=== PATIENT | female | born 1985 | race Caucasian/White ===

== ENCOUNTER 2025-01-24 22:10 | Emergency (ER) | payer OTHER, SELFPAY ==
--- NOTE | ~2025-01-24 | US_ITS ---
CLINICAL HISTORY: heavy vaginal bleeding US pelvis transabdominal and transvaginal, with Doppler Comparison: None available Findings: Transvaginal and transabdominal scanning performed. Anteverted uterus is 8.1 cm length. Portions of the uterus are obscured by side of the artifacts. Endometrium measures 1.1 cm superiorly by transabdominal imaging and measures 6 mm thickness by transvaginal imaging. Areas of nonuniformity are noted. Dorsal low echogenicity measures 8 mm in the uterus likely due to small fibroid. Small cystic adjacent to the cervix likely due to nabothian cysts measuring 1 cm (image 23). Small follicles noted in both ovaries Right ovary measures 2.9 x 2.5 x 1.6 cm. Left ovary measures 3.2 x 2.1 x 1.9 cm. No significant free fluid in the imaged pelvis. Doppler: Doppler arterial waveform of the right ovary demonstrates peak systolic velocity of 7 cm/sec and resistive index of 0.5. Doppler arterial waveform of the left ovary demonstrates peak systolic velocity of 4 cm/sec and resistive index of 0.5, accounting for aliasing artifacts. IMPRESSION: 1. Nonuniformity of the imaged endometrium. Please consider attention on follow-up in 6 weeks or 10 weeks to ensure normalization. 2. No ultrasound findings of ovarian torsion. This document has been electronically signed by: Frank Ruby MD on 01/25/2025 01:05:57
[2025-01-24 22:33] VITALS: BP 141/81; PULSE 75; RESP 18; TEMP 36.6; O2SAT 98; BMI 36.7
[2025-01-24 23:05] LABS: MANUAL DIFF FLAG NO
[2025-01-24 23:06] LABS: Basophils Absolute Auto 0.1 X10*3/uL (0.0-0.2); Basophils Percent Auto 0.6 % (0-2); Eosinophils Absolute Auto 0.2 X10*3/uL (0.0-0.4); Eosinophils Percent Auto 2.7 % (0-4); Hemoglobin 13.2 g/dl (12.0-16.0); Imm Gran Abs Auto 0.02 X10*3/uL (0.00-0.03); Imm Gran Pct Auto 0.2 % (0.0-0.4); Lymphocytes Absolute Auto 3.2 X10*3/uL (1.2-4.9); Lymphocytes Percent Auto 35.3 % (20-40); Mean Corpuscular HGB Conc 34.7 g/dl (31.0-35.0); Mean Corpuscular Hemoglobin 34.3 pg (27.0-33.0); Mean Corpuscular Volume 98.7 fL (80.0-98.0); Mean Platelet Volume 9.4 fL (9.4-12.3); Monocytes Absolute Auto 0.6 X10*3/uL (0.1-1.2); Neutrophils Absolute Auto 4.9 x10*3/uL (2.0-8.3); Neutrophils Percent Auto 54.2 % (45-73); Platelet Count 304 X10*3/uL (160-400); Red Blood Count 3.85 X10*6/uL (4.20-5.50); Red Cell Distribution Width 12.3 % (11.0-16.0)
[2025-01-24 23:07] LABS: Appearance Urine Cloudy; Color Urine RED; Glucose Urine UA Negative (Negative); Leukocyte Esterase Urine Small (1+) (Negative); Nitrite Urine Positive (Negative); Specific Gravity - Urine 1.025 (1.005-1.025); UMIC TRIGGER UACC YES; Urine Blood Large (3+) (Negative); Urine Ketones Trace mg/dL (Negative); Urine Protein 100 (2+) mg/dL (Neg-Trace)
[2025-01-24 23:16] LABS: Bacteria Urine 4+ (None Seen); Hyaline Casts Urine 0-2 /LPF (0-2); RBC Urine >20 /HPF (0-2); UACC Culture Trigger YES; WBC Urine >50 /HPF (0-5)
[2025-01-24 23:27] LABS: Alanine Aminotransferase 13 U/L (0-31); Albumin Level 4.4 g/dL (3.5-5.0); Alkaline Phosphatase 80 U/L (39-117); Anion Gap 13 (12-20); Aspartate Amino Transferase 21 U/L (5-31); Bilirubin Direct 0.2 mg/dL (0.0-0.5); Bilirubin Total 0.4 mg/dL (0.0-1.0); Blood Urea Nitrogen 13 mg/dL (9-16); Calcium 9.2 mg/dL (8.4-10.2); Carbon Dioxide 24 mmol/L (22-29); Chloride 107 mmol/L (96-108); Creatinine Clr Calc Pharmacy 93.8; Estimated Glomerular Filt Rate > 60; Glucose Random 106 mg/dL (60-115); Lipase 30 U/L (8-78); Potassium 3.8 mmol/L (3.3-5.1); Sodium 140 mmol/L (135-145); Total Protein 7.7 g/dL (6.5-8.0)
[2025-01-24 23:28] LABS: HCG Quantitative < 2 mIU/mL
--- NOTE | 2025-01-24 23:40 | ED_ITS ---
HPI - General Adult General Chief complaint: Vaginal Bleeding Stated complaint: lost a blood clot this morning/not menstruating Time Seen by Provider: 01/24/25 23:32 Source: patient Mode of arrival: ambulatory Limitations: no limitations History of Present Illness ED Provider: Dr. Olga Valdez HPI narrative: Patient comes to the emergency room complaining of heavy vaginal bleeding starting today a proximally 12 hours ago. Patient states that it has low down quite a bit throughout the day. Patient states that her last menstrual period was a proximally 2 weeks ago. Also, patient complaining of mild suprapubic discomfort. Patient denies fever chills. Related Data Previous Rx's ?Medication ?Instructions ?Recorded ondansetron HCl 4 mg tablet 4 mg PO Q6H PRN nausea and 01/25/25 vomiting #10 tabs tranexamic acid 650 mg tablet 650 mg PO Q8H 5 days #15 tabs 01/25/25 Allergies Allergy/AdvReac Type Severity Reaction Status Date / Time No Known Allergies Allergy Verified 01/24/25 22:36 Review of Systems 2 Review of Systems: Constitutional : No Weight loss, No Fever, No Chills, No Night Sweats, No Fatigue, No Malaise ENT/Mouth : No Hearing loss, No Ear Pain, No Nasal Congestion, No Sinus Pain, No Hoarseness, No sore throat, No Rhinorrhea, No Swallowing Difficulty Eyes: No Eye Pain, No Swelling, No Redness, No Foreign Body, No Discharge, No Vision Changes Cardiovascular : No Chest Pain, No SOB, No Dyspnea on Exertion, No Orthopnea, No Edema, No Palpitations Respiratory : No Cough, No Sputum, No Wheezing, No Smoke Exposure, No Dyspnea Gastrointestinal : No Nausea, No Vomiting, No Diarrhea, No Constipation, no significant abdominal pain, suprapubic discomfort. Genitourinary : Complaining of heavy vaginal bleeding, last menstrual period 2 weeks ago, No Dysuria, No Urinary Frequency, No Hematuria, No Urinary Incontinence, No Urgency, No Flank Pain, No Urinary Flow Changes, No Hesitancy Musculoskeletal : No joint pain, No Myalgias, No Joint Swelling Skin : No Skin Lesions, No rash Neuro : No Weakness, No Numbness, No Paresthesias, No Loss of Consciousness, No Dizziness, No Headache Psych : No Anxiety/Panic, No Depression, No SI/HI/AH/VH, No Social Issues, Heme/Lymph: No Bruising, No Bleeding,No Lymphadenopathy Endocrine : No Polyuria, No Polydipsia, No Temperature Intolerance [facility] Social History Social History Smoked in Last 30 Days: Yes Use of substances other than those prescribed or required for medical reasons: Yes Substance Use Type: Marijuana Advance Directives: No Advance Directives Information Provided: Yes Do you have a plan to hurt others: No Plan Patient : No Physical Exam ED Vital Signs: Vital Signs - 24 hr 01/24/25 22:33 01/24/25 23:46 Temperature 97.9 F 97.8 F Pulse Rate 75 67 Respiratory Rate 18 16 Blood Pressure 141/81 H 126/74 Pulse Oximetry 98 99 Oxygen Delivery Method Room Air Room Air BMI result Body Mass Index 36.7 Const Other: Appearance: Alert. Oriented X3. No acute distress. Eyes: Pupils equal, round and reactive to light. ENT: Pharynx normal. Neck: Normal inspection. Neck supple. No lymph nodes noted. No crepitus CVS: Normal heart rate and rhythm. Pulses normal. Normal S1 and S2 Respiratory: No respiratory distress. Breath sounds normal. No Wheezing. No rales Abdomen: Soft and nontender. No rigidity. No distention. : Small to moderate amount of vaginal bleeding Skin: Skin warm and dry. Normal skin color. Normal skin turgor. Extremities: No lower extremity edema. No Lacerations. No Rash Neuro: Oriented X 3. No motor deficit. No sensory deficit. Moving all extremities. No slurred speech. CN 2 through 12 grossly intact Psych: calm, cooperative, normal affect Course Course Course Narrative: Patient complaining of vaginal bleeding despite having her last menstrual period 2 weeks ago, also complaining of mild suprapubic pain, no flank pain Medications Administered Discontinued Medications Generic Name Dose Route Start Last Admin Trade Name Freq PRN Reason Stop Dose Admin Cefuroxime Axetil 250 mg 01/24/25 23:44 01/24/25 23:53 Cefuroxime Axetil 250 Mg Tablet PO 01/24/25 23:45 250 mg ONCE ONE Administration Medical Decision Making Medical Decision Making [facility] Narrative: My interpretation of labs: No significant abnormality in patient's hematology, patient not anemic, normal chemistry, hCG negative, urinalysis positive for UTI Patient was given cefuroxime in the emergency room Ultrasound shows non uniformity of the endometrium. Patient will likely need a repeat ultrasound in 6-10 weeks. I discussed the above-mentioned with the patient, patient will follow-up with the primary care physician. Patient may need to be referred for ultrasound through her PCP I discussed with the patient that regarding the bleeding, we could try control pills. However, patient declined control pills at this time. Patient states that she has a lot of side effects and gains weight significantly with OCPs. Patient requesting a different medication. Patient denies history of migraine headaches or coagulopathy in the family or herself. Patient will be taking for a few days tranexamic acid p.o.. Discussed with the patient that it may make her feel nauseous. Patient agrees with plan Differential Diagnosis Differential Diagnoses: The differential diagnosis associated with the presentation includes (Menorrhagia, menometrorrhagia, miscarriage) Admission/Observation Consideration of admission/observation: Escalation of care including admission/observation considered (Given patient's history and presentation, observation was considered) Lab Data MDM Lab Attestation statement: I reviewed the patient's lab results. 01/24/25 22:57 01/24/25 22:57 Labs: Lab Results 01/24/25 Range/Units 22:57 WBC 9.0 (4.8-10.8) X10*3/uL RBC 3.85 L (4.20-5.50) X10*6/uL Hgb 13.2 (12.0-16.0) g/dl Hct 38.0 (37.0-47.0) % MCV 98.7 H (80.0-98.0) fL MCH 34.3 H (27.0-33.0) pg MCHC 34.7 (31.0-35.0) g/dl RDW 12.3 (11.0-16.0) % Plt Count 304 (160-400) X10*3/uL MPV 9.4 (9.4-12.3) fL Immature Gran % (Auto) 0.2 (0.0-0.4) % Neut % (Auto) 54.2 (45-73) % Lymph % (Auto) 35.3 (20-40) % Kidder % (Auto) 7.0 (2-11) % Eos % (Auto) 2.7 (0-4) % Baso % (Auto) 0.6 (0-2) % Lymph # (Auto) 3.2 (1.2-4.9) X10*3/uL Kidder # (Auto) 0.6 (0.1-1.2) X10*3/uL Eos # (Auto) 0.2 (0.0-0.4) X10*3/uL Baso # (Auto) 0.1 (0.0-0.2) X10*3/uL Abs Immat Gran (auto) 0.02 (0.00-0.03) X10*3/uL Absolute Neuts (auto) 4.9 (2.0-8.3) x10*3/uL Absolute Nucleated RBC 0.000 (0.0-0.012) X10*3/uL Nucleated RBC % (auto) 0.0 (0.0-0.2) /100WBC Sodium 140 (135-145) mmol/L Potassium 3.8 (3.3-5.1) mmol/L Chloride 107 (96-108) mmol/L Carbon Dioxide 24 (22-29) mmol/L Anion Gap 13 (12-20) BUN 13 (9-16) mg/dL Creatinine 0.78 (0.5-1.4) mg/dL Estim Creat Clear Calc 93.8 Estimated GFR > 60 Random Glucose 106 (60-115) mg/dL Calcium 9.2 (8.4-10.2) mg/dL Total Bilirubin 0.4 (0.0-1.0) mg/dL Direct Bilirubin 0.2 (0.0-0.5) mg/dL AST 21 (5-31) U/L ALT 13 (0-31) U/L Alkaline Phosphatase 80 (39-117) U/L Total Protein 7.7 (6.5-8.0) g/dL Albumin 4.4 (3.5-5.0) g/dL Lipase 30 (8-78) U/L Beta HCG, Quant < 2 mIU/mL Urine Color RED Urine Appearance Cloudy Urine pH 6.0 (5.0-9.0) Ur Specific Anderson 1.025 (1.005-1.025) Urine Protein 100 (2+) H (Neg-Trace) mg/dL Urine Glucose (UA) Negative (Negative) mg/dL Urine Ketones Trace (Negative) mg/dL Urine Blood Large (3+) H (Negative) Urine Nitrite Positive H (Negative) Ur Leukocyte Esterase Small (1+) H (Negative) Urine RBC >20 H (0-2) /HPF Urine WBC >50 H (0-5) /HPF Ur Squamous Epith Cells 11-20 (0-2) /HPF Urine Bacteria 4+ (None Seen) Hyaline Casts 0-2 (0-2) /LPF Independent Interpretation I performed an independent interpretation of an: Ultrasound Radiology Impression Discussion of test interpretation with radiology: I have reviewed the radiologist's reading. Radiologist Impression: Findings: Transvaginal and transabdominal scanning performed. Anteverted uterus is 8.1 cm length. Portions of the uterus are obscured by side of the artifacts. Endometrium measures 1.1 cm superiorly by transabdominal imaging and measures 6 mm thickness by transvaginal imaging. Areas of nonuniformity are noted. Dorsal low echogenicity measures 8 mm in the uterus likely due to small fibroid. Small cystic adjacent to the cervix likely due to nabothian cysts measuring 1 cm (image 23). Small follicles noted in both ovaries Right ovary measures 2.9 x 2.5 x 1.6 cm. Left ovary measures 3.2 x 2.1 x 1.9 cm. No significant free fluid in the imaged pelvis. Doppler: Doppler arterial waveform of the right ovary demonstrates peak systolic velocity of 7 cm/sec and resistive index of 0.5. Doppler arterial waveform of the left ovary demonstrates peak systolic velocity of 4 cm/sec and resistive index of 0.5, accounting for aliasing artifacts. IMPRESSION: 1. Nonuniformity of the imaged endometrium. Please consider attention on follow-up in 6 weeks or 10 weeks to ensure normalization. 2. No ultrasound findings of ovarian torsion. Critical Care Time Critical Care Time Critical Care Time: Yes Total Critical Care Time: 35 Attestation: I have personally provided critical care time. Time includes review of lab data, radiology results, discussion with consultants, and monitoring for potential decompensation. Intervention performed as documented. Discharge Plan Discharge Clinical Impression: Menometrorrhagia Patient Disposition: Home, Self-Care Instructions: Abnormal (Dysfunctional) Uterine Bleeding (ED) Additional Instructions: Please follow-up with your primary care physician tomorrow. If you have any worsening or new symptoms, please return to the emergency room or call 911. Prescriptions: New tranexamic acid 650 mg tablet 650 mg PO Q8H 5 Days Qty: 15 0RF ondansetron HCl 4 mg tablet 4 mg PO Q6H PRN (Reason: nausea and vomiting) Qty: 10 0RF Print Language: Faroese
[2025-01-24 23:46] VITALS: BP 126/74; PULSE 67; RESP 16; TEMP 36.6; O2SAT 99
[2025-01-24] MEDS: cefuroxime axetiL 250 MG TABLET PO (23:53)
[2025-01-25 01:55] VITALS: BP 126/74; PULSE 67; RESP 16; TEMP 36.6; O2SAT 99
== END 2025-01-25 01:56 | disposition home or self-care (01) ==
PROVIDERS: Emergency Provider Emergency Medicine
DX: N93.9 Abnormal uterine and vaginal bleeding, unspecified (principal); N92.1 Excessive and frequent menstruation with irregular cycle; R10.2 Pelvic and perineal pain; Z79.899 Other long term (current) drug therapy
CPT/HCPCS: 36415; 76830; 76856; 80048; 80076; 81001; 83690; 84702; 85025; 87086; 99284

== ENCOUNTER → 2025-01-25 | Outpatient (BNV) | payer OTHER, SELFPAY | PROVIDERS: Emergency Provider Emergency Medicine; Visit Provider Radiology Neuroradiology | DX: N93.9 Abnormal uterine and vaginal bleeding, unspecified (principal) | CPT/HCPCS: 76830; 76856 ==